=== PATIENT | female | born 1975 | race Caucasian/White ===

== ENCOUNTER → 2017-08-09 | Outpatient (CLI) | payer OTHER ==
--- NOTE | 2017-08-09 13:08 | MM ---
Reason for exam: screening (asymptomatic). Baseline mammogram. History: Took hormonal contraceptives beginning at age 22. Physical Findings: Nurse Summary: 2cm nodule in the right breast at 6 o'clock (nurse christopher). MG Screening Mammo w CAD Bilateral CC and MLO view(s) were taken. There are scattered fibroglandular densities. There is no discrete abnormality including areas of concern in the right breast. These results were verbally communicated with the patient and result sheet given to the patient on 08/09/17. ASSESSMENT: Incomplete: need additional imaging evaluation, BI-RAD 0 RECOMMENDATION: Ultrasound of the right breast. [facility] will attempt to contact patient to return for ultrasound. Manage patient on a clinical basis.
--- NOTE | 2017-08-09 13:18 | USB ---
Reason for exam: additional evaluation requested from abnormal screening. History: Took hormonal contraceptives beginning at age 22. US Breast Workup Limited RT Right breast ultrasound demonstrates a 2.3 x 2.9 x 2.1cm oval, solid lesion at 5 o'clock. Probable lipoma however confirm with biopsy. These results were verbally communicated with the patient and result sheet given to the patient on 08/09/17. ASSESSMENT: Suspicious, BI-RAD 4 RECOMMENDATION: Ultrasound core biopsy of the right breast. (5 o'clock) Called Dr. Fay with mammographic findings and has scheduled an appointment for the patient for 09/02/17 at 9:[address] Ha. PRELIMINARY REPORT CALLED AND FAXED TO DR. HA ON 08/09/17.
== END | disposition home or self-care (01) ==
LOC: RADMAMWWP 10:25
PROVIDERS: ATTEND Obstetrics & Gynecology
DX: Z12.31 Encounter for screening mammogram for malignant neoplasm of breast (principal); R92.8 Other abnormal and inconclusive findings on diagnostic imaging of breast
CPT/HCPCS: 77067

== ENCOUNTER → 2017-08-19 | Outpatient (CLI) | payer OTHER ==
[2017-08-19 10:18] LABS: Basophils % (A) 0 %; Eosinophils # (A) 0.3 k/uL (0-0.7); Eosinophils % (A) 3 %; HCT 41.9 % (34.0-46.0); HGB 13.7 gm/dL (11.4-16.0); Lymphocytes # (A) 2.7 k/uL (1.0-4.8); Lymphocytes % (A) 27 %; MCH 27.4 pg (25.0-35.0); MCHC 32.8 g/dL (31.0-37.0); MCV 83.6 fL (80.0-100.0); Monocytes # (A) 0.4 k/uL (0-1.0); Monocytes % (A) 4 %; Neutrophils # (A) 6.6 k/uL (1.3-7.7); Neutrophils % (A) 65 %; Platelet Count 421 k/uL (150-450); RBC 5.01 m/uL (3.80-5.40); RDW 14.7 % (11.5-15.5)
== END | disposition home or self-care (01) ==
LOC: LABPAT 09:41
PROVIDERS: ATTEND Obstetrics & Gynecology
DX: Z01.812 Encounter for preprocedural laboratory examination (principal)
CPT/HCPCS: 36415; 85025

== ENCOUNTER 2017-08-25 11:21 | Day surgery (SDC) | payer OTHER ==
[2017-08-19 11:40] VITALS: BMI 54.1
[~2017-08-25 11:21] MED LIST: LACTATED RINGERS 1,000 ML IV SCH; Pre Op ABX Message 1 EACH MISC MISCELLANE ONE
[2017-08-25] MEDS ORDERED: LIDOCAINE 1% 20 ML VIAL (10MG/ML) FOR IV START INTRADERMA ONE (12:24)
[2017-08-25] MEDS ORDERED: DEXAMETHASONE SOD PHOS (MDV) 100 MG/10 ML VIAL IVP ONE (12:27)
[2017-08-25] MEDS ORDERED: ONDANSETRON 4 MG/2 ML VIAL IVP ONE (12:27)
[2017-08-25] MEDS ORDERED: LIDOCAINE 1% INJ 10MG/ML (20 ML MDV) ONE (13:16)
[2017-08-25] MEDS ORDERED: SUCCINYLCHOLINE CHLORIDE VIAL 200 MG/10 ML VIAL IV ONE (13:16)
[2017-08-25] MEDS ORDERED: fentaNYL (PF) 50 MCG/ML 2 ML AMP ONE (13:16)
[2017-08-25] MEDS ORDERED: MIDAZOLAM 2 MG/2 ML VIAL ONE (13:16)
[2017-08-25] MEDS ORDERED: PROPOFOL 10 MG/ML 20 ML VIAL IV ONE (13:16)
[2017-08-25 14:05] VITALS: TEMP 98.8
--- NOTE | 2017-08-25 14:05 | P.OP ---
Date of Procedure: 08/25/17 Preoperative Diagnosis: Menorrhagia Postoperative Diagnosis: Same Procedure(s) Performed: D&C with hysteroscopy with failed NovaSure Anesthesia: NICA Surgeon: Martin Fay Estimated Blood Loss (ml): 10 Pathology: other (Uterine curettings) Condition: stable Disposition: same day Operative Findings: Grossly enlarged uterus with but palpated is calcified fragments within the uterine love Description of Procedure: Patient was taken to the operating suite where a general anesthetic was found be adequate. She was prepped and draped in the normal sterile fashion placed in dorsal lithotomy position. Initially a weighted speculum was inserted into the vagina and the anterior lip of the cervix identified and grasped with a single-tooth tenaculum. Cervix was then sounded to a little more than 12 cm and then cervix was dilated. Camera was then inserted, no gross pathology was really visible but the uterine cavity appeared very enlarged and at that point I was concerned about NovaSure not being able to work. Camera was then removed and sharp curettings of endometrium were obtained, significant quantity of endometrial curettings were obtained including what palpated is calcified fragments along the posterior wall during the curettage. Once tissues collected and sent to pathology, NovaSure system was inserted with a length of 6 and a width of 4.2 it was tested but would not pass patency test. It is my opinion the cavity was simply too large and the vacuum was unable to bring the NovaSure system down onto it to allow to engage. I did try this 3 times and had no success in getting the machine to passes patency test. Therefore all instruments were removed sponge, lap, needle counts were all correct 2 and patient was then taken to the recovery room in stable and satisfactory condition. Level lengthy discussion with the patient at her postop appointment on treatment options. Plan - Discharge Summary New Discharge Prescriptions: New Ibuprofen [Motrin] 600 mg PO Q6HR PRN #30 tab PRN Reason: Pain No Action Everyyhing Plus 1 applic SL DAILY Happy Pms 1 applic TOPICAL DAILY Acetaminophen [Tylenol] 2 tab PO DAILY PRN PRN Reason: Pain Discharge Medication List Everyyhing Plus 1 applic SL DAILY 08/19/17 [History] Happy Pms 1 applic TOPICAL DAILY 08/19/17 [History] Acetaminophen [Tylenol] 2 tab PO DAILY PRN 08/25/17 [History] Ibuprofen [Motrin] 600 mg PO Q6HR PRN #30 tab 08/25/17 [Rx] Follow up Appointment(s)/Referral(s): Martin Fay DO [Doctor of Osteopathic Medicine] - 10 Days Activity/Diet/Wound Care/Special Instructions: No heavy lifting, limit stairs and driving and pelvic rest. If any high temperatures, heavy bleeding, or severe pain call my office
[2017-08-25 14:17] VITALS: RESP 18
[2017-08-25] MEDS ORDERED: LACTATED RINGERS 1,000 ML IV ONE (14:38)
[2017-08-25] MEDS ORDERED: IBUPROFEN 200 MG TAB PO ONE (15:00)
[2017-08-25 15:15] VITALS: BP 137/67; PULSE 115
== END 2017-08-25 15:37 | disposition home or self-care (01) ==
LOC: OR 11:21
PROVIDERS: ATTEND Obstetrics & Gynecology
DX: N92.0 Excessive and frequent menstruation with regular cycle (principal); J45.909 Unspecified asthma, uncomplicated; R93.8 Abnormal findings on diagnostic imaging of other specified body structures; Z72.0 Tobacco use
CPT/HCPCS: 81025; 88305; 58563; J2250; J0330; J2405; J2001; J3010; J1100; J2704